=== PATIENT | male | born 1965 | race Asian ===

== ENCOUNTER 2017-12-21 14:59 | Emergency (ER) | payer MEDICAID | END 2017-12-21 15:39 | disposition home or self-care (01) | LOC: E/R 15:39 | DX: F41.9 Anxiety disorder, unspecified (principal); R40.2142 Coma scale, eyes open, spontaneous, at arrival to emergency department; R40.2252 Coma scale, best verbal response, oriented, at arrival to emergency department; R40.2362 Coma scale, best motor response, obeys commands, at arrival to emergency department | CPT/HCPCS: 99283; Z7502 ==